=== PATIENT | male | born 1980 | race Caucasian/White ===

== ENCOUNTER 2017-10-03 15:10 | Observation (INO) | payer BC ==
[2017-10-03] MEDS ORDERED: ASPIRIN 81 MG CHEWABLE TABLETS PO ONE (15:14)
--- NOTE | 2017-10-03 15:14 | PDOC ---
Rapid Medical Evaluation Time Seen by Provider: 10/03/17 15:14 Medical Evaluation: Allergies Allergy/AdvReac Type Severity Reaction Status Date / Time No Known Allergies Allergy Verified 02/21/16 21:15 10/03/17 15:14 I have performed a brief in-person evaluation of this patient. The patient presents with a chief complaint of: chest pain, sent by cards MD Joe, lyly fam hx of CAD/GA, chest pain since this morning Pertinent physical exam findings: well appearing, vss I have ordered the following: cardiac workup The patient will proceed to the ED for further evaluation.
[2017-10-03 16:18] LABS: EOS % 4.7 % (0-4.5); HEMATOCRIT 41.8 % (35.4-49); HEMOGLOBIN 14.2 GM/dL (11.7-16.9); LYMPH % 32.5 % (8-40); MCHC 33.9 g/dl (32.0-35.9); MEAN CELL VOLUME 82.6 fl (80-96); MEAN PLT VOLUME 7.8 fl (7.5-11.1); NEUT % 53.8 % (42.8-82.8); PLATELET COUNT 243 K/MM3 (134-434); RBC 5.06 M/mm3 (4.00-5.60); RDW 12.8 % (11.9-15.9); WHITE BLOOD COUNT 6.6 K/mm3 (4.0-10.0)
[2017-10-03 16:29] LABS: INR 1.03 (0.82-1.09); PROTHROMBIN TIME (PATIENT) 11.6 SEC (9.98-11.88)
[2017-10-03 16:41] LABS: ALBUMIN 4.1 g/dl (3.4-5.0); ANION GAP 7 (8-16); BLOOD UREA NITROGEN 13 mg/dL (7-18); CALCIUM 8.6 mg/dL (8.5-10.1); CHLORIDE 107 mmol/L (98-107); CO2 25 mmol/L (21-32); GLUCOSE,RANDOM 80 mg/dL (74-106); POTASSIUM 3.9 mmol/L (3.5-5.1); SODIUM 139 mmol/L (136-145)
[2017-10-03 16:47] LABS: ALK PHOS 82 U/L (45-117); BILIRUBIN,TOTAL 0.9 mg/dL (0.2-1.0); SGOT/AST 21 U/L (15-37); SGPT/ALT 32 U/L (12-78); TOT PROT 7.9 g/dl (6.4-8.2)
[2017-10-03] MEDS ORDERED: ACETAMINOPHEN 325 MG TABLET (FP) PO ONE (17:36)
[2017-10-03] MEDS ORDERED: ACETAMINOPHEN 325 MG TABLET (FP) ONE (17:54)
--- NOTE | 2017-10-03 18:41 | PDOC ---
History of Present Illness - General Chief Complaint: Chest Pain Stated Complaint: CHEST PAIN Time Seen by Provider: 10/03/17 15:14 History Source: Patient Exam Limitations: No Limitations - History of Present Illness Initial Comments: 10/03/17 18:36 HPI: This 37 yr old male with c/o chest pain on the left chest wall comes and goes over few days. He took 325 mg asa and came to ER per his PCP. He has a significant family hx of male cardiac disease and . He says it's not strong pain and it comes and goes but no relief from motrin. Chief Compliant: atypical chest pain PMH: FH: Pt has not recently traveled outside the country in the last 30 days. Pt has not been in contact with people who have traveled out of the country, in contact with people who have been ill with fever, n, v, d. SH: smoking use: + smoker illicit drug use: NONE alcohol use: NONE employment/educational status: sexual history: PSH: Home med use noted on AUG Allergies:NKA Immunizations: PCP: heladio cards: Past History - Past Medical History Allergies/Adverse Reactions: Allergies Allergy/AdvReac Type Severity Reaction Status Date / Time No Known Allergies Allergy Verified 10/03/17 15:17 Home Medications: Ambulatory Orders NK [No Known Home Medication] 10/03/17 COPD: No - Immunization History Immunization Up to Date: Yes - Suicide/Smoking/Psychosocial Hx Smoking History: Never smoked Have you smoked in the past 12 months: No Information on smoking cessation initiated: No Hx Alcohol Use: No Drug/Substance Use Hx: No Substance Use Type: None Review of Systems - Review of Systems Able to Perform ROS?: Yes Comments:: 10/03/17 18:41 General statement: Intermittent chest pain Hematology: neg history of bleeding/blood thinners Skin: Neg for lesions, rash, bruising. HEENT: Neg symptoms Respiratory: Neg SOB or difficulty in breathing Cardiac: + chest pain GI: Neg pain, n/v : Neg problems on voiding MS: Neg for joint pain/stiffness, no edema Neuro: Neg for LOC, weakness, Endocrine: Neg for excess thirst/hunger, cold/heat intolerance, excess sweating Allergies: Neg for allergies *Physical Exam - Vital Signs Last Vital Signs Temp Pulse Resp BP Pulse Ox 98.2 F 63 16 137/71 98 10/03/17 15:15 10/03/17 15:15 10/03/17 15:15 10/03/17 15:15 10/03/17 17:51 - Physical Exam Comments: 10/03/17 18:42 General Appearance: This well appearing V/S: hemodynamically stable, afebrile Skin: WNL of pt's skin color, no signs of pallor, mottling, cyanosis Head:symmetrical Eyes: EOM's intact, PERRLA Ears: denies pain Nose: patent Throat: lips, teeth, gums, tongue, buccal mucos pink and moist Lungs: Chest symmetry equal. Cap refill <3 seconds. Lung sounds clear Cardiac: PMI at R 4MCL space, pos S1 and S2, regular rate. His bradycardia at a rate of 59 Abdomen: Soft, round, nontender : Not observed Muscularskeletal: Gait steady, ambulated in to ER, no edema +PMS Neuro: AAOx3, cognitively intact, speech clear and appropriate. Heart Score/ECG Review - History History: Moderately suspicious - Electrocardiogram EKG: Normal - Age Age: </= 45 - Risk Factors Risk Factors Heart Score: Yes Smoking History Based on the list above the patient has:: 1-2 risk factors - Troponin Troponin: </= normal limit - Score Heart Score - Total: 2 ED Treatment Course - LABORATORY CBC & Chemistry Diagram: 10/03/17 15:27 10/03/17 15:27 - ADDITIONAL ORDERS Additional order review: Laboratory Results 10/03/17 10/03/17 15:27 15:27 PT with INR 11.60 INR 1.03 Sodium 139 Potassium 3.9 Chloride 107 Carbon Dioxide 25 Anion Gap 7 L BUN 13 Creatinine 1.0 Creat Clearance w eGFR > 60 Random Glucose 80 Calcium 8.6 Magnesium 2.0 Total Bilirubin 0.9 AST 21 ALT 32 Alkaline Phosphatase 82 Creatine Kinase 143 Troponin I < 0.02 Total Protein 7.9 Albumin 4.1 10/03/17 15:27 RBC 5.06 MCV 82.6 MCHC 33.9 RDW 12.8 MPV 7.8 Neutrophils % 53.8 Lymphocytes % 32.5 Monocytes % 8.0 Eosinophils % 4.7 H Basophils % 1.0 - Medications Given in the ED: ED Medications Discontinued Medications Generic Name Dose Route Start Last Admin Trade Name Freq PRN Reason Stop Dose Admin Acetaminophen 650 mg 10/03/17 17:36 10/03/17 17:59 Tylenol - PO 10/03/17 17:37 650 mg ONCE ONE Administration Aspirin 162 mg 10/03/17 15:14 10/03/17 15:33 Asa - PO 10/03/17 15:15 Not Given ONCE ONE Medical Decision Making - Medical Decision Making 10/03/17 18:42 A/P: This 37 yr old male with c/o chest pain atypical -first set of trops neg -ekg nsr rate 59 -spoke with Dr. ag, cards, admit for card monitoring -admit to dr. leija *DC/Admit/Observation/Transfer Diagnosis at time of Disposition: Chest pain Qualifiers: Chest pain type: intercostal pain Qualified Code(s): R07.82 - Intercostal pain - Discharge Dispostion Condition at time of disposition: Stable Admit: Yes - Referrals Referrals: Elian Leija MD [Primary Care Provider] - - Patient Instructions - Post Discharge Activity
--- NOTE | 2017-10-03 20:25 | HP ---
Admitting History and Physical - Primary Care Physician PCP: Elian Narayanan - Admission Chief Complaint: Chest Pain History of Present Illness: 37 yrs old male smoker family history of premature CAD and SCD father with HI art the age of 38 yrs 2 paternal uncle had HI in 40s, his brothers diagnosed CAd < 50 yrs of age present with Left sided retrosternal chest pain that started around 10.30 am while at work 6/10 in intensity, non radiating diffuse pressure like, intermittent with perspiration and uneassy breathing patient discussed with his Physical cousin and too ASA 325 mg came to our office for evaluation of chest pain, on arrival c/o chest discomfort , EKG shows no acute St T changes but early repolarisation changes with tall T ave in ant leadssame as base line considering family history and presentation with + H/O smoking referred to Ed for further evaluation, in the Ed EKG remained stable , admitted for observation and possible NST in am. , History Source: Patient - Past Surgical History Past Surgical History: Yes: None - Smoking History Smoking history: Current some day smoker Have you smoked in the past 12 months: No - Alcohol/Substance Use Hx Alcohol Use: No - Social History Usual Living Arrangement: Yes: With Spouse Home Medications - Allergies Allergies/Adverse Reactions: Allergies Allergy/AdvReac Type Severity Reaction Status Date / Time No Known Allergies Allergy Verified 10/03/17 15:17 - Home Medications Home Medications: Ambulatory Orders NK [No Known Home Medication] 10/03/17 Family Disease History - Family Disease History Family Disease History: Heart Disease: Father (CAd at 38 with HI), Brother (CAD) Other Family History: Paternal unkle premature CAD Review of Systems - Review of Systems Constitutional: denies: Chills, Diaphoresis, Fever HENT: denies: Difficult Swallowing, Ear Discharge Neck: denies: Decreased ROM, Lumps, Pain on Movement Cardiovascular: reports: Chest Pain, Shortness of Breath Respiratory: denies: Cough, Exercise Intolerance Gastrointestinal: denies: Abdominal Pain, Bloating, Constipation Musculoskeletal: denies: Back Pain Neurological: denies: Change in LOC, Change in Speech, Confusion, Dizziness Endocrine: denies: Excessive Sweating, Flushing Hematology/Lymphatic: denies: Easily Bruised, Excessive Bleeding Physical Examination Vital Signs: Vital Signs Temperature 98.2 F 10/03/17 15:15 Pulse Rate 63 10/03/17 18:46 Respiratory Rate 17 10/03/17 18:46 Blood Pressure 102/70 10/03/17 18:46 O2 Sat by Pulse Oximetry (%) 100 10/03/17 18:46 Constitutional: Yes: Well Nourished, No Distress. No: Anxious Eyes: Yes: Conjunctiva Clear, EOM Intact, PERRL HENT: Yes: Atraumatic, Normocephalic Neck: Yes: Supple, Trachea Midline. No: Decreased ROM, Lymphadenopathy Cardiovascular: Yes: Regular Rate and Rhythm, S1, S2. No: Bruit, JVD, Murmur Respiratory: Yes: Regular, CTA Bilaterally Gastrointestinal: Yes: Normal Bowel Sounds, Soft Musculoskeletal: No: Back Pain, Joint Stiffness, Joint Swelling Extremities: No: Calf Tenderness, Deformity Edema: No Peripheral Pulses WNL: Yes Neurological: Yes: Alert, Oriented ...Motor Strength: WNL, LUE, LLE, RUE, RLE Labs: CBC, BMP 10/03/17 15:27 10/03/17 15:27 Laboratory Results - last 24 hr 10/03/17 10/03/17 10/03/17 15:27 15:27 15:27 WBC 6.6 RBC 5.06 Hgb 14.2 Hct 41.8 MCV 82.6 MCH 28.0 MCHC 33.9 RDW 12.8 Plt Count 243 MPV 7.8 Neutrophils % 53.8 Lymphocytes % 32.5 Monocytes % 8.0 Eosinophils % 4.7 H Basophils % 1.0 PT with INR 11.60 INR 1.03 Sodium 139 Potassium 3.9 Chloride 107 Carbon Dioxide 25 Anion Gap 7 L BUN 13 Creatinine 1.0 Creat Clearance w eGFR > 60 Random Glucose 80 Calcium 8.6 Magnesium 2.0 Total Bilirubin 0.9 AST 21 ALT 32 Alkaline Phosphatase 82 Creatine Kinase 143 Troponin I < 0.02 Total Protein 7.9 Albumin 4.1 Imaging - Results Chest X-ray: Report Reviewed (Normal) EKG: Report Reviewed (NSr at 63 tall T wave no acute St T chnages) Problem List - Problems (1) Chest pain Assessment/Plan: Patient admitted with intermittent chest pain with diaphoresis and SOB Family H/O Premature atherosclerosis and premature cardiac , evaluated in the Ed initial EKG no acute St T changes and troponin I negative, but patient has moderate to high risk of CAD is negat for observation to R/O ACS, Cardiology consult cont ASA 81 md read, serial CE ECHO NST F/U ESR, CRP, Lipid panel TSH s/l NTG PRN if ACS is R/o and chest pain free NST in am. Code(s): R07.9 - CHEST PAIN, UNSPECIFIED Qualifiers: Chest pain type: precordial pain Qualified Code(s): R07.2 - Precordial pain
[2017-10-03] MEDS ORDERED: NITROGLYCERIN SUBLINGUAL 1/150 0.4 MG TAB SL PRN (20:36)
[2017-10-03] MEDS ORDERED: ATORVASTATIN CA 40 MG TABLET (FP) PO ONE (20:45)
[2017-10-03] MEDS ORDERED: ATORVASTATIN CA 40 MG TABLET (FP) ONE (20:46)
[2017-10-03] MEDS ORDERED: ACETAMINOPHEN 325 MG TABLET (FP) PO PRN (22:22)
[2017-10-04 00:36] LABS: CHOLESTEROL 165 mg/dL (50-200); HDL CHOLESTEROL 54 mg/dL (40-60); LDL CHOLESTEROL (ONLY SJRH) 102 mg/dL (5-100); TRIGLYCERIDES 62 mg/dL (35-160)
[2017-10-04 01:47] VITALS: BMI 26.0
[2017-10-04 08:08] LABS: ANION GAP 3 (8-16); BLOOD UREA NITROGEN 13 mg/dL (7-18); CALCIUM 8.6 mg/dL (8.5-10.1); CHLORIDE 108 mmol/L (98-107); CO2 30 mmol/L (21-32); GLUCOSE,RANDOM 86 mg/dL (74-106); POTASSIUM 3.9 mmol/L (3.5-5.1); SODIUM 141 mmol/L (136-145)
[2017-10-04 08:10] LABS: BASO % 0.8 % (0-2.0); LYMPH % 29.5 % (8-40); MCHC 34.1 g/dl (32.0-35.9); MEAN CELL VOLUME 82.3 fl (80-96); MONO % 9.1 % (3.8-10.2); NEUT % 53.6 % (42.8-82.8); PLATELET COUNT 225 K/MM3 (134-434); RBC 4.98 M/mm3 (4.00-5.60); RDW 12.4 % (11.9-15.9); WHITE BLOOD COUNT 5.4 K/mm3 (4.0-10.0)
[2017-10-04 08:31] LABS: CHOLESTEROL 150 mg/dL (50-200); HDL CHOLESTEROL 48 mg/dL (40-60); LDL CHOLESTEROL (ONLY SJRH) 97 mg/dL (5-100); TRIGLYCERIDES 71 mg/dL (35-160)
--- NOTE | 2017-10-04 11:22 | EKG ---
Test Reason : Blood Pressure : / mmHG Vent. Rate : 052 BPM Atrial Rate : 052 BPM P-R Int : 144 ms QRS Dur : 096 ms QT Int : 426 ms P-R-T Axes : 031 053 037 degrees QTc Int : 396 ms SINUS BRADYCARDIA WITH SINUS ARRHYTHMIA OTHERWISE NORMAL ECG WHEN COMPARED WITH ECG OF 03-OCT-2017 15:15, NO SIGNIFICANT CHANGE WAS FOUND Confirmed by WOLFGANG PÉREZ MD ([id number]) on 10/04/2017 11:22:03 AM Referred By: Confirmed By:WOLFGANG PÉREZ MD
--- NOTE | 2017-10-04 11:24 | EKG ---
Test Reason : Blood Pressure : / mmHG Vent. Rate : 057 BPM Atrial Rate : 057 BPM P-R Int : 132 ms QRS Dur : 096 ms QT Int : 414 ms P-R-T Axes : 020 060 046 degrees QTc Int : 402 ms SINUS BRADYCARDIA OTHERWISE NORMAL ECG NO PREVIOUS ECGS AVAILABLE Confirmed by WOLFGANG PÉREZ MD ([id number]) on 10/04/2017 11:24:06 AM Referred By: Confirmed By:WOLFGANG PÉREZ MD
--- NOTE | 2017-10-04 13:44 | DS ---
Physical Examination Vital Signs: Vital Signs Temperature 98.7 F 10/04/17 01:57 Pulse Rate 53 L 10/04/17 01:57 Respiratory Rate 20 10/04/17 01:57 Blood Pressure 97/59 10/04/17 01:57 O2 Sat by Pulse Oximetry (%) 99 10/03/17 23:00 Constitutional: Yes: Well Nourished, No Distress. No: Anxious Eyes: Yes: Conjunctiva Clear, EOM Intact, PERRL HENT: Yes: Atraumatic, Normocephalic Neck: Yes: Supple, Trachea Midline. No: Decreased ROM, Lymphadenopathy Cardiovascular: Yes: Regular Rate and Rhythm, S1, S2. No: Bruit, JVD, Murmur Respiratory: Yes: Regular, CTA Bilaterally Gastrointestinal: Yes: Normal Bowel Sounds, Soft Musculoskeletal: No: Back Pain, Joint Stiffness, Joint Swelling Extremities: No: Calf Tenderness, Deformity Edema: No Peripheral Pulses WNL: Yes Neurological: Yes: Alert, Oriented Motor Strength: WNL, LUE, LLE, RUE, RLE Labs: CBC, BMP 10/04/17 06:40 10/04/17 06:40 Discharge Summary Reason For Visit: CHEST PAIN Current Active Problems Chest pain (Acute) Procedures: Principal: ECHO, NST Hospital Course: 37 yrs old male smoker family history of premature CAD and SCD father with WA art the age of 38 yrs 2 paternal uncle had WA in 40s, his brothers diagnosed CAd < 50 yrs of age present with Left sided retrosternal chest pain that started around 10.30 am while at work 6/10 in intensity, non radiating diffuse pressure like, intermittent with perspiration and uneassy breathing patient discussed with his Physical cousin and too ASA 325 mg came to our office for evaluation of chest pain, on arrival c/o chest discomfort , EKG shows no acute St T changes but early repolarisation changes with tall T ave in ant leadssame as base line considering family history and presentation with + H/O smoking referred to Ed for further evaluation, in the Ed EKG remained stable , admitted for observation, underwent ECO and NST, evaluated by Cardiology consult Serial CE and EKG no acute St T changes, Condition: Stable - Instructions Diet, Activity, Other Instructions: Low salt Low Cholesterol Referrals: Elian Narayanan MD [Primary Care Provider] - 1 Month Saji Lopez MD [Staff Physician] - 1 Month - Home Medications Comprehensive Discharge Medication List: Ambulatory Orders Aspirin [ASA -] 81 mg PO DAILY #30 tab.chew 10/04/17 Atorvastatin Ca [Lipitor] 10 mg PO HS #30 tablet 10/04/17
[2017-10-04 14:56] VITALS: BP 111/57; PULSE 66; TEMP 99.1
[2017-10-04] MEDS ORDERED: ATORVASTATIN CA 10 MG TABLET (FP) PO SCH (22:00)
[2017-10-05] MEDS ORDERED: ASPIRIN 81 MG CHEWABLE TABLETS PO SCH (10:00)
--- NOTE | 2017-10-09 14:09 | CONS ---
DATE OF CONSULTATION: 10/03/2017 REQUESTING PHYSICIAN: Isiah Joe M.D. CARDIOLOGY CONSULTATION LOCATION: Emergency room. CHIEF COMPLAINT: Chest pain. HISTORY OF PRESENT ILLNESS: The patient is a 37-year-old [place] gentleman who developed a cough associated with yellowish expectoration for the past 2 days. The cough is pronounced last evening. There is no history of chills or fever, denies having a sore throat. No history of myalgias. This morning, he started experiencing left lateral localized mild pressure-like chest pain that radiated to the left breast. Pain would last 1-2 minutes and haile spontaneously, had multiple episodes, one of them was associated with mild diaphoresis. There is no history of shortness of breath, nausea or vomiting. All episodes were unrelated to exertion and were nonradiating and nonpleuritic in nature. He finally decided to see his primary care physician who advised him to go to the emergency room. On questioning, patient denies having exertional chest, arm, back, jaw pain or discomfort. There is no history of hypertension, diabetes mellitus, or hypercholesterolemia. Also he has not seen a physician in the recent past. There is no history of palpitations, lightheadedness, dizziness, presyncope, or syncope reported. No history of hypercholesterolemia. PAST HISTORY: History of intermittent frontal headaches. SOCIAL HISTORY: He is , is self employed, has 3 children, 2 daughters and a son who are healthy. He smoked from the age of 26 to 32 and used to smoke about 4-5 cigarettes per day, does not drink, has a cup of coffee and 2 cups of tea. FAMILY HISTORY: Father at the age of 42 of a myocardial infarction. Mother is 65 years of age. She is a diabetic and hypertensive. He has 3 brothers and a sister. His older brother is 48 years of age and has coronary artery disease, has undergone PCI and stenting. The other 2 brothers are healthy, as is the sister. His 2 paternal uncles at the age of 45 and 50 of a myocardial infarction. Two other paternal uncles have undergone coronary artery bypasses at the age of 50 and 48. One of his first cousins from father's side also has coronary artery disease. ALLERGIES: None reported. MEDICATION: Takes a periodic Advil for headaches. REVIEW OF SYSTEMS: Constitutional: Denies having any chills, fever, or night sweats. No history of unintentional weight loss. HEENT: History of intermittent headaches at times accompanied by blurred vision, no history of epistaxis, hoarseness, tinnitus, or deafness reported. Cardiovascular: See history of present illness. Respiratory: See history of present illness. History of cough and yellowish expectoration for the last 2 days. Gastrointestinal: History of occasional gastroesophageal reflux disease, no history of nausea, vomiting, melena, or hematemesis. No history of abdominal pain or discomfort. No history of change in bowel habits. Neurologic: No history of lightheadedness, dizziness, seizures, syncope. No history of focal weakness. Genitourinary: No history of dysuria, frequency, or hematuria. Musculoskeletal: No history of myalgias or arthralgias. Endocrine: No history of polyuria, polydipsia. No history of hematuria. Hematological: No history of anemia, ecchymosis, or bleeding. PHYSICAL EXAMINATION: General: A 37-year-old gentleman at the time of examination was in no distress, no pallor, cyanosis, clubbing or jaundice. Vital signs: Weight 190 pounds. Blood pressure 102/70 mmHg. Pulse 63 beats per minute and regular. Temperature 98.2F. Respirations 17 per minute. Oxygen saturation 98% on room air. Neck: Supple. No jugulovenous distention, carotids were 2+, upstrokes were normal, no bruits were heard, and no thyromegaly was present. There was no submandibular or supraclavicular lymphadenopathy. Heart: PMI was in the 5th intercostal space, no heaves or thrills. S1 and S2 were normal. No murmur or gallops or rubs were heard. There was point tenderness involving the 4th intercostal space along the medial clavicular line. Abdomen: Protuberant, soft, nontender, no hepatosplenomegaly or palpable masses were felt. No bruits were heard, and bowel sounds were present. Extremities: No calf tenderness or dependent edema, pulses were equal. ECG October 03, 2017, at 1515 hours: Sinus bradycardia, upward going of ST segments in leads II, III, AVF, and peaked T waves in V4 to V6 may be related to early repolarization, pericarditis cannot be excluded. CBC: WBC count 6600, hemoglobin 14.2 g/dL, platelet count 243,000. Chemistry: Sodium 139, potassium 3.9, chloride 107, CO2 of [place] [id number]
--- NOTE | 2017-10-09 14:09 | CONS ---
Consultation continued: LABORATORY: Chemistry: sodium 139, potassium 3.9, chloride 107, CO2 of 25, BUN 13, creatinine 1.0, magnesium 2.0, CK 143, troponin less than 0.02. X-ray chest is not available. IMPRESSION: 1. Chest pain syndrome, atypical presentation for coronary artery disease, etiology: a. Pain of musculoskeletal origin. b. Pericarditis needs to be excluded. 2. Strong family history of coronary artery disease. RECOMMENDATION: 1. Serial EKGs and enzymes. 2. Echocardiogram. 3. Myoview stress test. 4. Lipid profile. 5. Add aspirin 81 mg p.o. daily. 6. Add Lipitor 80 mg today. 7. Stat ECG during episode of chest pain. 8. Follow up troponins in 2 hours and 4 hours. 9. Prognosis guarded. Thank you for your referral. ZOHREH BARBA M.D. [id number]
== END 2017-10-04 18:13 | disposition home or self-care (01) ==
LOC: JER 15:10 → JERBED 18:47 → J4W 21:29
PROVIDERS: ADMIT Internal Medicine; ATTEND Internal Medicine
DX: R07.82 Intercostal pain (principal); Z82.49 Family history of ischemic heart disease and other diseases of the circulatory system; F17.210 Nicotine dependence, cigarettes, uncomplicated
CPT/HCPCS: 36415; 71046-TC-FY; 78452-TC; 80048; 80053; 80061; 82550; 83036; 83721; 83735; 84443; 84484; 85025; 85610; 86140; 93005; 93010; 93017; 93306-TC; 99285-25; A9502; G0378